=== PATIENT | female | born 1985 | race Caucasian/White ===

== ENCOUNTER 2017-12-02 09:43 | Emergency (ER) | payer SELFPAY ==
[2017-12-02 10:34] LABS: BASOPHILS 0.3 % (0-2); EOSINOPHILS 4.8 % (0-7); HEMATOCRIT 42.1 % (36.0-48.0); HEMOGLOBIN 14.3 g/dL (12-16); IMMATURE GRANULOCYTES 0.2 % (0-5); LYMPHOCYTES 29.9 % (15-50); MCH 30.8 pg (26.0-34.0); MCV 90.7 fL (80.0-100.0); MEAN PLATELET VOLUME 11.7 fL (7.4-10.4); MONOCYTES 6.7 % (2-11); NEUTROPHILS 58.1 % (40-80); PLATELET COUNT 240 10x3/uL (130-400); RBC 4.64 10x6/uL (4.00-5.40); RDW 12.6 % (11.5-14.5); WBC 8.9 10x3/uL (4.8-10.8)
[2017-12-02 10:39] LABS: HCG SERUM NEGATIVE (NEGATIVE)
[2017-12-02 11:18] LABS: APPEARANCE CLEAR (CLEAR); BILIRUBIN NEGATIVE (NEGATIVE); COLOR STRAW (YELLOW); GLUCOSE NEGATIVE (NEGATIVE); KETONE NEGATIVE (NEGATIVE); NITRITE NEGATIVE (NEGATIVE); PROTEIN NEGATIVE (NEGATIVE); UROBILINOGEN NORMAL (NORMAL)
[2017-12-02 11:19] LABS: BACTERIA FEW /hpf (NONE SEEN); EPITHELIAL CELLS 0-5 /hpf (0-5); RED CELLS - URINE 0-5 /hpf (0-5); WHITE CELLS - URINE NSEEN /hpf (0-5)
== END 2017-12-02 11:10 | disposition home or self-care (01) ==
LOC: D.ER 09:43
PROVIDERS: Emergency Medicine
DX: N93.9 Abnormal uterine and vaginal bleeding, unspecified (principal); R10.30 Lower abdominal pain, unspecified; F17.200 Nicotine dependence, unspecified, uncomplicated

== ENCOUNTER 2017-12-10 21:37 | Emergency (ER) | payer SELFPAY | END 2017-12-10 22:26 | disposition home or self-care (01) | LOC: D.ER 21:37 | DX: J45.901 Unspecified asthma with (acute) exacerbation (principal); I10 Essential (primary) hypertension ==

== ENCOUNTER 2019-06-08 20:51 | Emergency (ER) | payer MEDICAID ==
[~2019-06-08] VITALS: Ht 188 cm; Wt 125.5 kg
[2019-06-08 20:58] VITALS: Ht 188 cm; Wt 125.5 kg
[2019-06-08] MEDS ORDERED: SINGULAIR10 MG PO (20:59)
[2019-06-08] MEDS ORDERED: ALBUTEROL SULF8.5 GM INH (21:00)
[2019-06-08] MEDS ORDERED: ALDACTONE25 MG PO (21:00)
[2019-06-08] MEDS ORDERED: SYMBICORT 16010.2 GM INH (21:00)
[2019-06-08] MEDS ORDERED: VYVANSE50 MG PO (21:01)
[2019-06-08 21:15] LABS: BASOPHILS 0.2 % (0-2); EOSINOPHILS 2.3 % (0-7); HEMATOCRIT 38.3 % (36.0-48.0); HEMOGLOBIN 13.2 g/dL (12-16); IMMATURE GRANULOCYTES 0.2 % (0-5); LYMPHOCYTES 21.5 % (15-50); MCHC 34.5 g/dL (31.0-37.0); MCV 89.9 fL (80.0-100.0); MEAN PLATELET VOLUME 11.6 fL (7.4-10.4); MONOCYTES 5.8 % (2-11); PLATELET COUNT 222 10x3/uL (130-400); RBC 4.26 10x6/uL (4.00-5.40); RDW 12.7 % (11.5-14.5); WBC 9.9 10x3/uL (4.8-10.8)
[2019-06-08 21:24] LABS: APTT 32.4 SECONDS (22.8-39.4); INR 0.99 (0.85-1.17); PROTIME 12.6 SECONDS (11.6-15.0)
[2019-06-08 21:30] LABS: HCG URINE NEGATIVE (NEGATIVE)
[2019-06-08 21:39] LABS: ALBUMIN 4.3 g/dL (3.4-5.0); ALKALINE PHOSPHATASE 53 U/L (46-116); ALT (SGPT) 38 U/L (10-68); BILIRUBIN - TOTAL 0.45 mg/dL (0.2-1.3); CALC OSMOLALITY 283 mosm/kg (275-300); CALCIUM 9.1 mg/dL (8.5-10.1); CHLORIDE - SERUM 106 mmol/L (98-107); CREATININE - SERUM 0.9 mg/dL (0.6-1.3); GLUCOSE 100 mg/dL (74-106); POTASSIUM - SERUM 3.8 mmol/L (3.5-5.1); PROTEIN - SERUM 7.8 g/dL (6.4-8.2); SODIUM 143 mmol/L (136-145); UREA NITROGEN 9 mg/dL (7-18); eGFR NON AFRICAN AMERICAN 76 mL/min (90-120)
[2019-06-08 21:48] LABS: CKMB 3.8 U/L (0.0-3.6); CREATINE KINASE 317 UL (21-215); MAGNESIUM - SERUM 2.2 mg/dL (1.8-2.4)
[2019-06-08 21:54] LABS: TROPONIN-I < 0.017 ng/mL (0.000-0.060)
--- NOTE | 2019-06-08 22:01 | NUR ---
DR MAK NOTIFIED AND REVIEWED PT'S BEHAVIOR AND ASSESSMENT RESULTS. PT IS A LOW RISK PER DR MAK. DR MAK STATED TO GIVE RESOURCES TO PT AT TIME OF DISCHARGE. NO FURTHER ORDERS AT THIS TIME, RESOURCES REVIEWED WITH PT AND SHE VERBALIZED UNDERSTANDING.
[2019-06-08 23:09] VITALS: BP 118/63
== END 2019-06-08 23:12 | disposition home or self-care (01) ==
LOC: D.ER 20:51
PROVIDERS: Family Medicine
DX: R00.2 Palpitations (principal); I27.20 Pulmonary hypertension, unspecified; R42 Dizziness and giddiness